=== PATIENT | male | born 1980 | race Asian ===

== ENCOUNTER 2022-11-12 00:24 | Emergency (ER) | payer OTHER ==
[~2022-11-12] VITALS: Ht 167.6 cm; Wt 66.7 kg
[2022-11-12] MEDS ORDERED: SODIUM CHLORIDE 0.9% 1000ML 1,000 ML IV ONE (01:15)
[2022-11-12] MEDS ORDERED: SODIUM CHLORIDE 0.9% 1000ML 1,000 ML ONE (01:32)
[2022-11-12] MEDS ORDERED: IOPAMIDOL 370 MG/ML 100 ML INFUS..BTL INJ ONE (01:32)
[2022-11-12 02:36] LABS: ALBUMIN 2.8 g/dL (3.5-5.0); BILIRUBIN,DIRECT 7.4 mg/dL (0.0-0.5)
[2022-11-12 03:21] LABS: ANION GAP 24.1 mmol/L (8-16); CALCIUM 7.5 mg/dL (8.4-10.2); CREATININE, SERUM 8.89 mg/dL (0.72-1.25); POTASSIUM 3.1 mmol/L (3.5-5.1)
[2022-11-12 06:11] VITALS: BP 132/80; PULSE 84; RESP 18; TEMP 98.4; O2SAT 98
== END 2022-11-12 06:13 | disposition other institution (70) ==
LOC: FSED 00:28
DX: R11.2 Nausea with vomiting, unspecified (principal); R17 Unspecified jaundice; E80.6 Other disorders of bilirubin metabolism; N19 Unspecified kidney failure; E87.1 Hypo-osmolality and hyponatremia; E87.6 Hypokalemia; E83.51 Hypocalcemia; R16.2 Hepatomegaly with splenomegaly, not elsewhere classified; R51.9 Headache, unspecified; Z20.822 Contact with and (suspected) exposure to COVID-19; R94.31 Abnormal electrocardiogram [ECG] [EKG]
CPT/HCPCS: 36415; 74176; 76705; 80048; 80076; 83605; 93005; 99284; J7030; Q9967; U0002